=== PATIENT | female | born 1990 | race African-American/Black ===

== ENCOUNTER 2018-11-01 17:59 | Emergency (ER) | payer BC ==
[2018-11-01] MEDS ORDERED: METOCLOPRAMIDE 10 MG/2mL INJ ONE (18:54)
[2018-11-01] MEDS ORDERED: NA CHLORIDE 0.9% 1,000 ML ONE (18:54)
--- NOTE | 2018-11-01 20:31 | ER ---
Nurse's Notes [facility] Name: Alexandria Rothman Age: 28 yrs Sex: Female : 1990 Arrival Date: 11/01/2018 Time: 18:02 Bed 15 Private MD: None, None Diagnosis: Headache Presentation: 11/01 18:03 Presenting complaint: Patient states: i have this headache since last night; today i hj have already 2 Aleve and 3 Sudafed and its still bad; denies N/V; the pain is more on the R side of the head;. Transition of care: patient was not received from another setting of care. Onset of symptoms was November 01, 2018. Risk Assessment: Do you want to hurt yourself or someone else? Patient reports no desire to harm self or others. Initial Sepsis Screen: Does the patient meet any 2 criteria? No. Patient's initial sepsis screen is negative. Does the patient have a suspected source of infection? No. Patient's initial sepsis screen is negative. Care prior to arrival: None. 18:03 Method Of Arrival: Ambulatory 18:03 Acuity: DAVID 3 hj Triage Assessment: 18:00 Pain: Also complains of no other associated symptoms. iw 18:48 Headache History: The patient has had previous headaches and this one is less severe iw than previous episodes. 18:48 Pain: Pain began one month ago. 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 - Social history:: Smoking status: Patient/guardian denies using tobacco. - Ebola Screening: : Patient negative for fever greater than or equal to 101.5 degrees Fahrenheit, and additional compatible Ebola Virus Disease symptoms Patient denies exposure to infectious person Patient denies travel to an Ebola-affected area in the 21 days before illness onset No symptoms or risks identified at this time. Screenin:39 Abuse screen: Denies threats or abuse. Denies injuries from another. Nutritional iw screening: No deficits noted. Tuberculosis screening: No symptoms or risk factors identified. Fall Risk IV access (20 points). Assessment: 18:48 General: Appears in no apparent distress. Behavior is calm, cooperative. Pain: iw Complains of pain in top of head and right tenriism Pain currently is 8 out of 10 on a pain scale. Neuro: Level of Consciousness is awake, alert, obeys commands, Oriented to person, place, time, situation, Moves all extremities. Full function Reports headache in right parietal area, frontal area. Cardiovascular: Patient's skin is warm and dry. Respiratory: Respiratory effort is even, unlabored, Respiratory pattern is regular, symmetrical. GI: No signs and/or symptoms were reported involving the gastrointestinal system. Abdomen is non-distended. Derm: Skin is intact, is healthy with good turgor. Musculoskeletal: Range of motion: intact in all extremities. 19:07 Reassessment: Patient appears in no apparent distress at this time. Patient and/or jb4 family updated on plan of care and expected duration. Pain level reassessed. Patient is alert, oriented x 3, equal unlabored respirations, skin warm/dry/pink. PT son is at the bedside. 20:03 Reassessment: Patient appears in no apparent distress at this time. Patient and/or jb4 family updated on plan of care and expected duration. Pain level reassessed. Patient is alert, oriented x 3, equal unlabored respirations, skin warm/dry/pink. Patient states feeling better. 20:42 Reassessment: Patient appears in no apparent distress at this time. Patient and/or jb4 family updated on plan of care and expected duration. Pain level reassessed. Patient is alert, oriented x 3, equal unlabored respirations, skin warm/dry/pink. Pt discharged home with son. No s/s of distress noted. Reports being more comfortable and pain being reduced. Patient states feeling better. Vital Signs: 18:05 BP 135 / 96; Pulse 88; Resp 18; Temp 98.1(TE); Pulse Ox 100% on R/A; Weight 77.11 kg; hj Height 5 ft. 1 in. (154.94 cm); Pain 10/10; 19:00 BP 136 / 91; Pulse 87; Resp 16; Pulse Ox 100% on R/A; jb4 20:00 BP 141 / 87; Pulse 87; Resp 16; Pulse Ox 100% on R/A; Pain 5/10; jb4 18:05 Body Mass Index 32.12 (77.11 kg, 154.94 cm) ED Course: 18:02 Patient arrived in ED. mr 18:03 None, None is Private Physician. mr 18:05 Triage completed. hj 18:06 Arm band placed on right wrist. 18:09 James Olguin PA is PHCP. [facility] 18:09 Richard Ozuna MD is Attending Physician. [facility] 18:22 Melisa Greene, RN is Primary Nurse. iw 18:39 Inserted saline lock: 22 gauge in right antecubital area, using aseptic technique. iw Blood collected. 19:00 Patient has correct armband on for positive identification. Bed in low position. Call jb4 light in reach. Side rails up X 1. Pulse ox on. NIBP on. 19:06 Primary Nurse role handed off by Melisa Greene RN jb 19:06 Zac Huang, SHANTI is Primary Nurse. jb4 20:28 Luis Coyle MD is Referral Physician. [facility] 20:43 No provider procedures requiring assistance completed. IV discontinued, intact, jb4 bleeding controlled. Administered Medications: 18:48 Drug: NS 0.9% 1000 ml Route: IV; Rate: 1 bolus; Site: right antecubital; iw 20:15 Follow up: IV Status: Completed infusion; IV Intake: 1000ml jb4 18:48 Drug: Reglan 10 mg Route: IVP; Site: right antecubital; iw 20:15 Follow up: Response: No adverse reaction; Pain is decreased jb4 Intake: 20:15 IV: 1000ml; Total: 1000ml. jb4 Outcome: 20:31 Discharge ordered by . [facility] 20:43 Discharged to home ambulatory, with family. jb4 20:43 Condition: stable 20:43 Discharge instructions given to patient, Instructed on discharge instructions, follow up and referral plans. Demonstrated understanding of instructions, follow-up care. 20:44 Patient left the ED. jb4 Signatures: James Olguin PA PA [facility] Leslie Hernandez Melisa Greene, SHANTI MOSER Jaylen Chatman RN RN Zac Huang RN RN jb4 Corrections: (The following items were deleted from the chart) 18:07 18:05 Pulse 88bpm; Resp 18bpm; Pulse Ox 100% RA; Temp 98.1F Temporal; 77.11 kg; Height hj 5 ft. 1 in.; BMI: 32.1; Pain 10/10; hj
--- NOTE | 2018-11-01 20:31 | EDPHYS ---
Physician Documentation [facility] Name: Alexandria Rothman Age: 28 yrs Sex: Female : 1990 Arrival Date: 11/01/2018 Time: 18:02 Bed 15 Private MD: None, None ED Physician Richard Ozuna HPI: 11/01 18:29 This 28 yrs old Black Female presents to ER via Ambulatory with complaints of Headache. jmm 18:29 The patient complains of pain to the right zoroastrian and top of head and head. Onset: The jmm symptoms/episode began/occurred gradually, 1 day(s) ago. Associated signs and symptoms: Pertinent negatives: neck stiffness, paresthesias, Photophobia rash, vision changes, vision loss, vomiting. The patient has experienced similar episodes in the past. This is a 28 year old female with no chronic medical conditions that presents to the ED with complaints of right sided headache beginning 1 day ago. Patient states she has had worse headaches in the past. Patient states her headaches do not normally last as long. Patient denies fever, denies neck stiffness. . 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 - Social history:: Smoking status: Patient/guardian denies using tobacco. - Ebola Screening: : Patient negative for fever greater than or equal to 101.5 degrees Fahrenheit, and additional compatible Ebola Virus Disease symptoms Patient denies exposure to infectious person Patient denies travel to an Ebola-affected area in the 21 days before illness onset No symptoms or risks identified at this time. ROS: 18:29 Constitutional: Negative for fever, chills, and weight loss, Neck: Negative for injury, jmm pain, and swelling, Cardiovascular: Negative for chest pain, palpitations, and edema, Respiratory: Negative for shortness of breath, cough, wheezing, and pleuritic chest pain. 18:29 Neuro: Positive for headache. 18:29 All other systems are negative. Exam: 18:29 Constitutional: This is a well developed, well nourished patient who is awake, alert, jmm and in no acute distress. Head/Face: atraumatic. Eyes: EOMI, no conjunctival erythema appreciated ENT: Moist Mucus Membranes Neck: Trachea midline, Supple Chest/axilla: Normal chest wall appearance and motion. Cardiovascular: Regular rate and rhythm. No edema appreciated Respiratory: Normal respirations, no respiratory distress appreciated Abdomen/GI: Non distended, soft Back: Normal ROM Skin: General appearance color normal MS/ Extremity: Moves all extremities, no obvious deformities appreciated, no edema noted to the lower extremities Neuro: Awake and alert, normal gait Psych: Behavior is normal, Mood is normal, Patient is cooperative and pleasant Vital Signs: 18:05 BP 135 / 96; Pulse 88; Resp 18; Temp 98.1(TE); Pulse Ox 100% on R/A; Weight 77.11 kg; hj Height 5 ft. 1 in. (154.94 cm); Pain 10/10; 19:00 BP 136 / 91; Pulse 87; Resp 16; Pulse Ox 100% on R/A; jb4 20:00 BP 141 / 87; Pulse 87; Resp 16; Pulse Ox 100% on R/A; Pain 5/10; jb4 18:05 Body Mass Index 32.12 (77.11 kg, 154.94 cm) MDM: 18:29 Patient medically screened. [facility] 20:26 Data reviewed: vital signs, nurses notes. Counseling: I had a detailed discussion with [facility] the patient and/or guardian regarding: the historical points, exam findings, and any diagnostic results supporting the discharge/admit diagnosis, the need for outpatient follow up, to return to the emergency department if symptoms worsen or persist or if there are any questions or concerns that arise at home. 20:26 ED course: Patient is alert and non toxic in appearance in the ED. Neck is supple. [facility] Patient has had worse headaches in the past. Headache is gradual on onset. Patient is afebrile. I do not suspect SAH or meningitis. Patient's pain relieved with Reglan. Patient is advised to follow up with neuro. patient understood and agrees with the plan of care.. 11/01 18:30 Order name: Saline Lock; Complete Time: 18:39 [facility] Administered Medications: 18:48 Drug: NS 0.9% 1000 ml Route: IV; Rate: 1 bolus; Site: right antecubital; iw 20:15 Follow up: IV Status: Completed infusion; IV Intake: 1000ml jb4 18:48 Drug: Reglan 10 mg Route: IVP; Site: right antecubital; iw 20:15 Follow up: Response: No adverse reaction; Pain is decreased jb4 Disposition: 11/02 10:28 Co-signature as Attending Physician, Richard Ozuna MD I agree with the assessment and kdr plan of care. Disposition: 11/01/18 20:31 Discharged to Home. Impression: Headache. - Condition is Stable. - Discharge Instructions: General Headache Without Cause. - Medication Reconciliation Form, Thank You Letter, Antibiotic Education, Prescription Opioid Use form. - Follow up: Luis Coyle MD; When: 2 - 3 days; Reason: Recheck today's complaints, Continuance of care, Re-evaluation by your physician. Signatures: Richard Ozuna MD MD kdr Mickail, Joel, PA PA [facility] Melisa Greene RN RN Jaylen Chatman RN RN Zac Huang RN RN jb4 Corrections: (The following items were deleted from the chart) 11/01 20:44 20:31 11/01/2018 20:31 Discharged to Home. Impression: Headache. Condition is Stable. jb4 Forms are Medication Reconciliation Form, Thank You Letter, Antibiotic Education, Prescription Opioid Use. Follow up: Luis Coyle; When: 2 - 3 days; Reason: Recheck today's complaints, Continuance of care, Re-evaluation by your physician. max
== END 2018-11-01 20:44 | disposition home or self-care (01) ==
LOC: ER 17:59
DX: R51 Headache (principal)
CPT/HCPCS: 96361; 96374; 99284; J2765; J7030